=== PATIENT | male | born 1940 | race Caucasian/White ===

== ENCOUNTER 2021-07-29 18:42 | Inpatient (IN) | payer MEDICARE, OTHER ==
[~2021-07-29] VITALS: Ht 167.6 cm; Wt 73.2 kg
[2021-07-29] MEDS ORDERED: HYDROCODONE/ACETAMINOPHEN 5/325MG TABLET PO ONE (20:00)
[2021-07-29] MEDS ORDERED: MORPHINE SULFATE 4 MG/ML CPJ (NOT FOR IM USE) IV STA (21:33)
[2021-07-29] MEDS ORDERED: ONDANSETRON HCL 4MG/2ML INJ IV STA (21:33)
[2021-07-29] MEDS ORDERED: SODIUM CHLORIDE 0.9% 1,000 ML IV ONE (21:45)
[2021-07-29 22:11] LABS: HEMATOCRIT. 41.5 % (42.0-52.0); HEMOGLOBIN. 13.6 g/dL (14.0-18.0); MEAN CORPUSCULAR HEMOGLOBIN 30.6 pg (28.0-32.0); MEAN CORPUSCULAR VOLUME 93.3 fL (80.0-94.0); MEAN PLATELET VOLUME 8.1 fl (7.4-10.4); PLATELET 158 x1000/uL (130-400); RED BLOOD CELL COUNT 4.45 mill/uL (4.7-6.1); RED CELL DISTRIBUTION WIDTH 13.1 % (11.6-14.6)
[2021-07-29 22:18] LABS: CHLORIDE 106 mEq/L (98-107)
[2021-07-29 22:21] LABS: PARTIAL THROMBOPLASTIN TIME 25.1 sec (23.4-31.0); PROTHROMBIN TIME 10.6 sec (9.6-11.0)
[2021-07-29 22:39] LABS: PLATELET ESTIMATE NORMAL
[2021-07-30] MEDS ORDERED: MAGNESIUM/ALUMINUM HYDROXIDE/SIMETHICONE 30ML UDC PO PRN (01:45)
[2021-07-30] MEDS ORDERED: NALOXONE HCL 0.4MG/ML VIAL IV PRN (01:45)
[2021-07-30] MEDS ORDERED: CLONIDINE 0.1MG TABLET PO PRN (01:45)
[2021-07-30] MEDS ORDERED: DOCUSATE SODIUM 100MG CAPSULE PO PRN (01:45)
[2021-07-30] MEDS ORDERED: ONDANSETRON HCL 4MG/2ML INJ IV PRN (01:45)
[2021-07-30] MEDS ORDERED: HYDROCODONE/APAP 7.5/325MG 1 TAB TABLET PO PRN (01:45)
[2021-07-30] MEDS ORDERED: GUAIFENESIN 200MG/10ML SUGAR FREE UDC PO PRN (01:45)
[2021-07-30] MEDS ORDERED: ACETAMINOPHEN 325MG TABLET PO PRN (01:45)
[2021-07-30] MEDS: AMLODIPINE 10MG TABLET PO SCH (02:00)
[2021-07-30] MEDS: ENOXAPARIN 40MG/0.4ML SYR SUBCUT SCH (09:46)
[2021-07-30] MEDS: HYDROMORPHONE HCL/PF 2MG/ML CPJ IV PRN ×2 (13:52→18:54)
[2021-07-30] MEDS ORDERED: FAMO40TA7 PO (15:40)
[2021-07-30] MEDS ORDERED: ASPI-1497 PO (15:40)
[2021-07-30] MEDS ORDERED: BUPR-74 PO (15:40)
[2021-07-30] MEDS ORDERED: OMEP20TA2 PO (15:40)
[2021-07-30] MEDS ORDERED: ROSU20TA2 PO (15:40)
[2021-07-30] MEDS ORDERED: VENL37.586 PO (15:40)
[2021-07-30] MEDS ORDERED: SITA1TAB6 PO (15:40)
[2021-07-30] MEDS ORDERED: AMLO10TA80 PO (15:40)
[2021-07-30] MEDS ORDERED: EMPA25TA PO (15:40)
[2021-07-30] MEDS ORDERED: LOSA50TA41 PO (15:40)
[2021-07-30] MEDS: BLOOD SUGAR DIAGNOSTIC STRIP TEST SCH ×2 (17:12→20:46)
[2021-07-30] MEDS ORDERED: DEXTROSE 50% WATER 50ML SYRINGE IV PRN (17:15)
[2021-07-30] MEDS: INSULIN LISPRO 100 UNITS/ML SUBCUT SCH ×2 (17:52→20:52)
[2021-07-30 19:53] VITALS: BP 125/60
[2021-07-30 20:00] VITALS: BP 141/47
[2021-07-31] VITALS: BP 133/81
[2021-07-31 04:00] VITALS: BP 128/55
[2021-07-31] MEDS: HYDROMORPHONE HCL/PF 2MG/ML CPJ IV PRN ×3 (04:59→18:22)
[2021-07-31 06:36] LABS: BASOPHILS % 0.2 % (0.0-2.0); EOSINOPHILS % 3.6 % (0.0-5.0); HEMATOCRIT. 32.8 % (42.0-52.0); HEMOGLOBIN. 11.2 g/dL (14.0-18.0); LYMPHOCYTES % 8.7 % (20.0-50.0); MEAN CORPUSCULAR HEMOGLOBIN 31.9 pg (28.0-32.0); MEAN CORPUSCULAR VOLUME 93.3 fL (80.0-94.0); MEAN PLATELET VOLUME 8.6 fl (7.4-10.4); MONOCYTES % 11.2 % (2.0-8.0); NEUTROPHILS % 76.3 % (40.0-76.0); PLATELET 113 x1000/uL (130-400); RED BLOOD CELL COUNT 3.52 mill/uL (4.7-6.1); RED CELL DISTRIBUTION WIDTH 13.7 % (11.6-14.6)
[2021-07-31] MEDS: BLOOD SUGAR DIAGNOSTIC STRIP TEST SCH ×4 (06:51→21:55)
[2021-07-31 06:53] LABS: CHLORIDE 106 mEq/L (98-107)
[2021-07-31] MEDS: INSULIN LISPRO 100 UNITS/ML SUBCUT SCH ×4 (06:57→21:55)
[2021-07-31 07:04] LABS: LDL CHOLESTEROL 35 mg/dL (5-100)
[2021-07-31 07:05] LABS: HDL CHOLESTEROL 56 mg/dL (40-59)
[2021-07-31 08:00] VITALS: BP 113/40
[2021-07-31] MEDS: ENOXAPARIN 40MG/0.4ML SYR SUBCUT SCH (09:28)
[2021-07-31] MEDS: AMLODIPINE 10MG TABLET PO SCH (09:28)
[2021-07-31 12:00] VITALS: BP 123/39
[2021-07-31 16:00] VITALS: BP 124/49
[2021-07-31 20:00] VITALS: BP 109/41
[2021-08-01] VITALS: BP 134/50
[2021-08-01 04:00] VITALS: BP 113/51
[2021-08-01] MEDS: BLOOD SUGAR DIAGNOSTIC STRIP TEST SCH ×4 (07:14→20:52)
[2021-08-01] MEDS: INSULIN LISPRO 100 UNITS/ML SUBCUT SCH ×4 (07:15→20:52)
[2021-08-01 08:00] VITALS: BP 128/52
[2021-08-01] MEDS: ENOXAPARIN 40MG/0.4ML SYR SUBCUT SCH (09:00)
[2021-08-01] MEDS: AMLODIPINE 10MG TABLET PO SCH (09:08)
[2021-08-01] MEDS: HYDROMORPHONE HCL/PF 2MG/ML CPJ IV PRN (09:14)
[2021-08-01] MEDS ORDERED: TRANEXAMIC ACID 1,000 MG in SODIUM CHLORIDE 0.9% 100 ML IV ONE ×2 (11:00→11:15)
[2021-08-01] MEDS ORDERED: EPINEPHRINE 1:1000 1 MG/ML AMP ONE (11:11)
[2021-08-01] MEDS ORDERED: MORPHINE SULFATE/PF 1MG/ML 10ML AMP ONE (11:11)
[2021-08-01] MEDS ORDERED: LIDOCAINE HCL/EPINEPHRINE 1%-EPI 1:100,000 30 ML VIAL INFIL ONE (11:11)
[2021-08-01] MEDS ORDERED: ROPIVACAINE HCL 10MG/ML 20 ML VIAL EPI ONE (11:12)
[2021-08-01] MEDS ORDERED: KETOROLAC 30MG/ML VIAL ONE (11:12)
[2021-08-01] MEDS ORDERED: VANCOMYCIN HCL 1 GM/VIAL ONE ×2 (11:16→14:45)
[2021-08-01] MEDS ORDERED: POLYMYXIN B SULFATE 500000 UNITS/VIAL ONE (11:16)
[2021-08-01] MEDS ORDERED: FENTANYL CITRATE/PF 50MCG/ML 2ML VIAL ONE ×2 (11:29→15:22)
[2021-08-01] MEDS ORDERED: PROPOFOL 200MG/20ML VIAL IV ONE (11:29)
[2021-08-01] MEDS ORDERED: ROCURONIUM BROMIDE 10MG/ML VIAL 5ML IV ONE (11:29)
[2021-08-01] MEDS ORDERED: CEFAZOLIN SODIUM 1000MG/VIAL ONE (11:29)
[2021-08-01] MEDS ORDERED: MIDAZOLAM HCL 2 MG/2 ML VIAL ONE (11:30)
[2021-08-01] MEDS ORDERED: DEXAMETHASONE 4MG/ML 1ML VIAL ONE (11:32)
[2021-08-01] MEDS ORDERED: ONDANSETRON HCL 4MG/2ML INJ ONE (11:32)
[2021-08-01] MEDS ORDERED: METOCLOPRAMIDE HCL 10MG/2ML VIAL ONE (11:32)
[2021-08-01] MEDS ORDERED: HYDROMORPHONE HCL/PF 2MG/ML CPJ IV PRN (14:30)
[2021-08-01] MEDS ORDERED: FENTANYL CITRATE/PF 50MCG/ML 2ML VIAL IV PRN (14:30)
[2021-08-01] MEDS ORDERED: SKIN ADHESIVE 0.7 GM EA TOP ONE (14:53)
[2021-08-01] MEDS ORDERED: HYDROCODONE/ACETAMINOPHEN 5/325MG TABLET PO PRN (15:30)
[2021-08-01] MEDS ORDERED: CEFAZOLIN 1000MG PREMIX 50 ML IV SCH (15:30)
[2021-08-01] MEDS ORDERED: ONDANSETRON HCL 4MG/2ML INJ IV PRN (15:30)
[2021-08-01] MEDS ORDERED: KETOROLAC 30MG/ML VIAL IV PRN (15:30)
[2021-08-01] MEDS ORDERED: HYDROCODONE/ACETAMINOPHEN 10/325MG TABLET PO PRN (15:30)
[2021-08-01 20:00] VITALS: BP 143/58
[2021-08-01] MEDS: CEFAZOLIN 1000MG PREMIX 50 ML IV SCH (20:51)
[2021-08-02] VITALS: BP 106/45
[2021-08-02 04:00] VITALS: BP 109/36
[2021-08-02] MEDS: CEFAZOLIN 1000MG PREMIX 50 ML IV SCH ×3 (04:01→20:03)
[2021-08-02] MEDS: BLOOD SUGAR DIAGNOSTIC STRIP TEST SCH ×4 (06:05→20:04)
[2021-08-02] MEDS: INSULIN LISPRO 100 UNITS/ML SUBCUT SCH ×4 (06:10→20:03)
[2021-08-02 08:00] VITALS: BP 113/42
[2021-08-02 08:26] LABS: HEMOGLOBIN. 8.4 g/dL (14.0-18.0); MEAN CORPUSCULAR HEMOGLOBIN 31.3 pg (28.0-32.0); MEAN CORPUSCULAR VOLUME 93.7 fL (80.0-94.0); MEAN PLATELET VOLUME 8.9 fl (7.4-10.4); PLATELET 126 x1000/uL (130-400); RED BLOOD CELL COUNT 2.67 mill/uL (4.7-6.1); RED CELL DISTRIBUTION WIDTH 12.8 % (11.6-14.6)
[2021-08-02] MEDS: AMLODIPINE 10MG TABLET PO SCH (08:41)
[2021-08-02] MEDS: ENOXAPARIN 40MG/0.4ML SYR SUBCUT SCH (08:41)
[2021-08-02] MEDS: HYDROMORPHONE HCL/PF 2MG/ML CPJ IV PRN ×3 (08:42→17:10)
[2021-08-02 12:00] VITALS: BP 110/90
[2021-08-02 16:00] VITALS: BP 118/40
[2021-08-02 16:53] LABS: PLATELET ESTIMATE SLIGHTLY DECREASED
[2021-08-02 20:00] VITALS: BP 131/43
[2021-08-03] VITALS (12 sets, daily range): BP systolic 101–133; BP diastolic 33–61
[2021-08-03] MEDS: BLOOD SUGAR DIAGNOSTIC STRIP TEST SCH ×4 (05:58→21:35)
[2021-08-03] MEDS: CEFAZOLIN 1000MG PREMIX 50 ML IV SCH ×3 (06:16→22:28)
[2021-08-03] MEDS: INSULIN LISPRO 100 UNITS/ML SUBCUT SCH ×4 (06:17→21:37)
[2021-08-03] MEDS: AMLODIPINE 10MG TABLET PO SCH (09:00)
[2021-08-03] MEDS: ENOXAPARIN 40MG/0.4ML SYR SUBCUT SCH (09:09)
[2021-08-03] MEDS: HYDROMORPHONE HCL/PF 2MG/ML CPJ IV PRN ×3 (09:10→21:36)
[2021-08-03] MEDS ORDERED: LACTULOSE 20G/30ML UDC PO PRN (10:30)
[2021-08-03 11:56] LABS: MEAN CORPUSCULAR HEMOGLOBIN 31.6 pg (28.0-32.0); MEAN CORPUSCULAR VOLUME 91.8 fL (80.0-94.0); MEAN PLATELET VOLUME 8.8 fl (7.4-10.4); PLATELET 134 x1000/uL (130-400); RED BLOOD CELL COUNT 2.29 mill/uL (4.7-6.1); RED CELL DISTRIBUTION WIDTH 12.7 % (11.6-14.6)
[2021-08-03 12:07] LABS: HEMOGLOBIN. 7.2 g/dL (14.0-18.0)
[2021-08-03] MEDS: DOCUSATE SODIUM 100MG CAPSULE PO SCH ×2 (13:48→17:59)
[2021-08-03 14:32] LABS: TOTAL IRON BINDING CAPACITY 280 ug/dL (250-450)
[2021-08-03 16:32] LABS: PLATELET ESTIMATE NORMAL
[2021-08-03 23:18] LABS: HEMATOCRIT 23.9 % (42.0-52.0); HEMOGLOBIN 8.2 g/dL (14.0-18.0)
[2021-08-04] MEDS ORDERED: IRON PO (04:15)
[2021-08-04] MEDS ORDERED: FEXOFENADINE PO (04:18)
[2021-08-04] MEDS ORDERED: VITAMINE D3 PO (04:19)
[2021-08-04] MEDS ORDERED: ZINC PO (04:20)
[2021-08-04] MEDS ORDERED: ASCO125T PO (04:21)
[2021-08-04] MEDS ORDERED: THIAMINE HCL 100MG TABLET PO SCH (09:00)
[2021-08-04] MEDS ORDERED: FOLIC ACID 1MG TABLET PO SCH (09:00)
== END 2021-08-03 23:55 | DRG 466 ==
LOC: ER 18:42 → MICUSO 22:34 → 5WST 07-30 13:31
PROVIDERS: ADMIT Hospitalist; ATTEND Hospitalist
PROC: 0SR90JZ Replacement of Right Hip Joint with Synthetic Substitute, Open Approach (ICD-10-PCS; principal; 2021-08-01)
PROC: 0SP90JZ Removal of Synthetic Substitute from Right Hip Joint, Open Approach (ICD-10-PCS; 2021-08-01)
PROC: 0QS604Z Reposition Right Upper Femur with Internal Fixation Device, Open Approach (ICD-10-PCS; 2021-08-01)
PROC: 30233N1 Transfusion of Nonautologous Red Blood Cells into Peripheral Vein, Percutaneous Approach (ICD-10-PCS; 2021-08-03)
DX: M97.01XA Periprosthetic fracture around internal prosthetic right hip joint, initial encounter (principal); S72.101A Unspecified trochanteric fracture of right femur, initial encounter for closed fracture; D64.9 Anemia, unspecified; E11.9 Type 2 diabetes mellitus without complications; I10 Essential (primary) hypertension; W01.0XXA Fall on same level from slipping, tripping and stumbling without subsequent striking against object, initial encounter; Z96.643 Presence of artificial hip joint, bilateral; D72.829 Elevated white blood cell count, unspecified; I25.10 Atherosclerotic heart disease of native coronary artery without angina pectoris; J44.9 Chronic obstructive pulmonary disease, unspecified; K22.70 Barrett's esophagus without dysplasia; Y93.01 Activity, walking, marching and hiking; D69.6 Thrombocytopenia, unspecified; Z20.822 Contact with and (suspected) exposure to COVID-19; R53.81 Other malaise; M16.11 Unilateral primary osteoarthritis, right hip; Z79.82 Long term (current) use of aspirin; Z79.84 Long term (current) use of oral hypoglycemic drugs; Z85.01 Personal history of malignant neoplasm of esophagus; Z87.891 Personal history of nicotine dependence; Z98.61 Coronary angioplasty status; Z79.899 Other long term (current) drug therapy; Z82.49 Family history of ischemic heart disease and other diseases of the circulatory system; Z88.1 Allergy status to other antibiotic agents; Z88.2 Allergy status to sulfonamides; Z88.8 Allergy status to other drugs, medicaments and biological substances; Y92.89 Other specified places as the place of occurrence of the external cause; Y99.8 Other external cause status; T84.030A Mechanical loosening of internal right hip prosthetic joint, initial encounter
CPT/HCPCS: 36415; 71045; 71101; 72170; 72192; 73030; 73080; 73110; 73501; 73502; 73552; 76000; 80053; 80061; 82962; 83036; 83540; 83550; 85014; 85018; 85025; 86850; 86900; 86920; 87426; 88300; 93005; 93306; 93970; 97110; 97162; 99285; C1776; J0690; J1100; J1170; J1650; J1815; J1885; J2250; J2270; J2274; J2405; J2704; J2765; J2795; J3010; J3370; J3490; J7030; J7050; P9016

== ENCOUNTER 2021-08-03 23:56 | Inpatient (IN) | payer MEDICARE ==
[~2021-08-03] VITALS: Ht 188 cm; Wt 68.0 kg
[~2021-08-03 23:56] MED LIST: AMLO10TA80 PO; ASPI-1497 PO; BUPR-74 PO; EMPA25TA PO; FAMO40TA7 PO; LOSA50TA41 PO; OMEP20TA2 PO; ROSU20TA2 PO; SITA1TAB6 PO; VENL37.586 PO
[2021-08-04] VITALS: BP 120/93
[2021-08-04] MEDS ORDERED: GUAIFENESIN 200MG/10ML SUGAR FREE UDC PO PRN (01:15)
[2021-08-04] MEDS ORDERED: DEXTROSE 50% WATER 50ML SYRINGE IV PRN (01:15)
[2021-08-04] MEDS ORDERED: CLONIDINE 0.1MG TABLET PO PRN ×2 (01:15)
[2021-08-04] MEDS ORDERED: HYDROCODONE/ACETAMINOPHEN 10/325MG TABLET PO PRN (01:15)
[2021-08-04] MEDS ORDERED: NALOXONE HCL 0.4 MG/ML 1ML VIAL IV PRN (01:15)
[2021-08-04] MEDS ORDERED: MAGNESIUM/ALUMINUM HYDROXIDE/SIMETHICONE 30ML UDC PO PRN (01:15)
[2021-08-04] MEDS ORDERED: ONDANSETRON HCL 4MG TABLET PO PRN (01:15)
[2021-08-04] MEDS: HYDROCODONE/ACETAMINOPHEN 5/325MG TABLET PO PRN ×3 (02:42→19:00)
[2021-08-04] MEDS ORDERED: IRON PO (04:15)
[2021-08-04] MEDS ORDERED: FEXOFENADINE PO (04:18)
[2021-08-04] MEDS ORDERED: VITAMINE D3 PO (04:19)
[2021-08-04] MEDS ORDERED: ZINC PO (04:20)
[2021-08-04] MEDS ORDERED: ASCO125T PO (04:21)
[2021-08-04 06:31] LABS: CHLORIDE 106 mEq/L (98-107)
[2021-08-04 06:35] LABS: HEMATOCRIT. 22.8 % (42.0-52.0); MEAN CORPUSCULAR HEMOGLOBIN 31.9 pg (28.0-32.0); MEAN CORPUSCULAR VOLUME 90.8 fL (80.0-94.0); MEAN PLATELET VOLUME 8.7 fl (7.4-10.4); PLATELET 134 x1000/uL (130-400); RED BLOOD CELL COUNT 2.51 mill/uL (4.7-6.1); RED CELL DISTRIBUTION WIDTH 13.4 % (11.6-14.6)
[2021-08-04] MEDS: BLOOD SUGAR DIAGNOSTIC STRIP TEST SCH ×4 (06:36→21:25)
[2021-08-04 07:54] VITALS: BP 127/53
[2021-08-04] MEDS: THIAMINE HCL 100MG TABLET PO SCH (08:13)
[2021-08-04] MEDS: DOCUSATE SODIUM 100MG CAPSULE PO SCH ×2 (08:13→18:57)
[2021-08-04] MEDS: FOLIC ACID 1MG TABLET PO SCH (08:13)
[2021-08-04] MEDS: AMLODIPINE 10MG TABLET PO SCH (09:09)
[2021-08-04 12:00] VITALS: BP 112/52
[2021-08-04] MEDS: INSULIN LISPRO 100 UNITS/ML SUBCUT SCH ×4 (12:36→21:55)
[2021-08-04 15:35] LABS: PLATELET ESTIMATE NORMAL
[2021-08-04 16:00] VITALS: BP 119/54
[2021-08-04] MEDS: LACTULOSE 20G/30ML UDC PO PRN (18:57)
[2021-08-04 20:00] VITALS: BP 122/50
[2021-08-05 06:42] LABS: BASOPHILS % 0.5 % (0.0-2.0); EOSINOPHILS % 4.9 % (0.0-5.0); HEMATOCRIT. 22.1 % (42.0-52.0); HEMOGLOBIN. 7.8 g/dL (14.0-18.0); LYMPHOCYTES % 10.2 % (20.0-50.0); MEAN CORPUSCULAR VOLUME 91.3 fL (80.0-94.0); MEAN PLATELET VOLUME 8.2 fl (7.4-10.4); MONOCYTES % 13.4 % (2.0-8.0); PLATELET 178 x1000/uL (130-400); RED BLOOD CELL COUNT 2.42 mill/uL (4.7-6.1); RED CELL DISTRIBUTION WIDTH 13.3 % (11.6-14.6)
[2021-08-05] MEDS: LACTULOSE 20G/30ML UDC PO PRN (06:47)
[2021-08-05] MEDS: HYDROCODONE/ACETAMINOPHEN 5/325MG TABLET PO PRN (06:47)
[2021-08-05] MEDS: BLOOD SUGAR DIAGNOSTIC STRIP TEST SCH ×4 (06:48→20:54)
[2021-08-05 07:04] LABS: CHLORIDE 105 mEq/L (98-107)
[2021-08-05 07:17] LABS: FOLIC ACID (FOLATE) SERUM 11.2 ng/mL (>5.38)
[2021-08-05 07:32] LABS: TOTAL IRON BINDING CAPACITY 283 ug/dL (250-450)
[2021-08-05 08:00] VITALS: BP 140/68
[2021-08-05] MEDS: DOCUSATE SODIUM 100MG CAPSULE PO SCH ×2 (08:09→17:20)
[2021-08-05] MEDS: THIAMINE HCL 100MG TABLET PO SCH (08:09)
[2021-08-05] MEDS: FOLIC ACID 1MG TABLET PO SCH (08:09)
[2021-08-05] MEDS: AMLODIPINE 10MG TABLET PO SCH (08:10)
[2021-08-05] MEDS: INSULIN LISPRO 100 UNITS/ML SUBCUT SCH ×4 (08:16→21:08)
[2021-08-05] MEDS: FERROUS SULFATE 325MG TABLET PO SCH ×2 (14:43→17:21)
[2021-08-05] MEDS ORDERED: CYANOCOBALAMIN 1000MCG/ML VIAL IM NR (17:45)
[2021-08-05 20:00] VITALS: BP 119/50
[2021-08-06] MEDS: HYDROCODONE/ACETAMINOPHEN 5/325MG TABLET PO PRN (00:28)
[2021-08-06 07:12] LABS: HEMATOCRIT. 24.1 % (42.0-52.0); HEMOGLOBIN. 8.2 g/dL (14.0-18.0); MEAN CORPUSCULAR HEMOGLOBIN 31.5 pg (28.0-32.0); MEAN CORPUSCULAR VOLUME 92.1 fL (80.0-94.0); MEAN PLATELET VOLUME 7.8 fl (7.4-10.4); PLATELET 259 x1000/uL (130-400); RED BLOOD CELL COUNT 2.62 mill/uL (4.7-6.1); RED CELL DISTRIBUTION WIDTH 13.2 % (11.6-14.6)
[2021-08-06] MEDS: ACETAMINOPHEN 325MG TABLET PO PRN ×3 (07:12→22:32)
[2021-08-06] MEDS: BLOOD SUGAR DIAGNOSTIC STRIP TEST SCH ×4 (07:12→21:00)
[2021-08-06] MEDS: INSULIN LISPRO 100 UNITS/ML SUBCUT SCH ×4 (07:24→22:54)
[2021-08-06 08:00] VITALS: BP 119/50
[2021-08-06] MEDS: FOLIC ACID 1MG TABLET PO SCH (08:00)
[2021-08-06] MEDS: THIAMINE HCL 100MG TABLET PO SCH (08:00)
[2021-08-06] MEDS: DOCUSATE SODIUM 100MG CAPSULE PO SCH ×2 (08:00→16:43)
[2021-08-06] MEDS: FERROUS SULFATE 325MG TABLET PO SCH ×2 (08:00→12:17)
[2021-08-06] MEDS: AMLODIPINE 10MG TABLET PO SCH (08:02)
[2021-08-06] MEDS ORDERED: INSULIN LISPRO 100 UNITS/ML SUBCUT ONE (12:15)
[2021-08-06] MEDS ORDERED: INSULIN LISPRO 100 UNITS/ML SUBCUT NR (13:00)
[2021-08-06 13:08] LABS: INR 0.9; PROTHROMBIN TIME 9.7 sec (9.6-11.0)
[2021-08-06] MEDS ORDERED: INSULIN GLARGINE UD 100 UNITS/ML SYR SUBCUT NR (14:00)
[2021-08-06 20:00] VITALS: BP 118/56
[2021-08-06 21:52] LABS: PLATELET ESTIMATE NORMAL
[2021-08-06] MEDS: LACTULOSE 20G/30ML UDC PO PRN (22:32)
[2021-08-06] MEDS: IRON SUCROSE COMPLEX 100 MG in SODIUM CHLORIDE 0.9% 100 ML IV SCH (23:20)
[2021-08-07] MEDS: ACETAMINOPHEN 325MG TABLET PO PRN ×5 (02:42→22:12)
[2021-08-07 06:32] LABS: CHLORIDE 105 mEq/L (98-107)
[2021-08-07] MEDS: BLOOD SUGAR DIAGNOSTIC STRIP TEST SCH ×4 (06:56→21:00)
[2021-08-07] MEDS: INSULIN LISPRO 100 UNITS/ML SUBCUT SCH ×4 (07:12→22:56)
[2021-08-07 08:00] VITALS: BP 110/55
[2021-08-07] MEDS: DOCUSATE SODIUM 100MG CAPSULE PO SCH ×3 (09:00→17:00)
[2021-08-07] MEDS: AMLODIPINE 10MG TABLET PO SCH (09:42)
[2021-08-07] MEDS: ASCORBIC ACID 500 MG TABLET PO SCH (09:42)
[2021-08-07] MEDS: FOLIC ACID 1MG TABLET PO SCH (09:42)
[2021-08-07] MEDS: THIAMINE HCL 100MG TABLET PO SCH (09:42)
[2021-08-07] MEDS ORDERED: INSULIN GLARGINE UD 100 UNITS/ML SYR SUBCUT SCH (10:00)
[2021-08-07 17:56] LABS: HEMATOCRIT. 23.5 % (42.0-52.0); HEMOGLOBIN. 8.2 g/dL (14.0-18.0); MEAN CORPUSCULAR HEMOGLOBIN 32.3 pg (28.0-32.0); MEAN CORPUSCULAR VOLUME 92.7 fL (80.0-94.0); MEAN PLATELET VOLUME 7.6 fl (7.4-10.4); PLATELET 325 x1000/uL (130-400); RED BLOOD CELL COUNT 2.53 mill/uL (4.7-6.1); RED CELL DISTRIBUTION WIDTH 13.7 % (11.6-14.6)
[2021-08-07 18:31] LABS: PLATELET ESTIMATE NORMAL
[2021-08-07 20:00] VITALS: BP 93/42
[2021-08-07] MEDS: IRON SUCROSE COMPLEX 100 MG in SODIUM CHLORIDE 0.9% 100 ML IV SCH (22:11)
[2021-08-08] MEDS: ACETAMINOPHEN 325MG TABLET PO PRN ×4 (02:35→23:44)
[2021-08-08] MEDS: BLOOD SUGAR DIAGNOSTIC STRIP TEST SCH ×4 (06:27→21:00)
[2021-08-08] MEDS: INSULIN LISPRO 100 UNITS/ML SUBCUT SCH ×6 (06:52→22:02)
[2021-08-08 07:41] LABS: HEMATOCRIT. 23.6 % (42.0-52.0); HEMOGLOBIN. 8.2 g/dL (14.0-18.0); MEAN CORPUSCULAR HEMOGLOBIN 32.3 pg (28.0-32.0); MEAN CORPUSCULAR VOLUME 93.4 fL (80.0-94.0); MEAN PLATELET VOLUME 7.2 fl (7.4-10.4); PLATELET 329 x1000/uL (130-400); RED BLOOD CELL COUNT 2.52 mill/uL (4.7-6.1); RED CELL DISTRIBUTION WIDTH 13.9 % (11.6-14.6)
[2021-08-08 07:48] LABS: CHLORIDE 105 mEq/L (98-107)
[2021-08-08 08:00] VITALS: BP 106/50
[2021-08-08] MEDS: DOCUSATE SODIUM 100MG CAPSULE PO SCH ×2 (08:52→18:34)
[2021-08-08] MEDS: FOLIC ACID 1MG TABLET PO SCH (08:52)
[2021-08-08] MEDS: AMLODIPINE 10MG TABLET PO SCH (08:52)
[2021-08-08] MEDS: ASCORBIC ACID 500 MG TABLET PO SCH (08:52)
[2021-08-08] MEDS: THIAMINE HCL 100MG TABLET PO SCH (09:27)
[2021-08-08] MEDS: INSULIN GLARGINE UD 100 UNITS/ML SYR SUBCUT SCH (10:28)
[2021-08-08 13:12] LABS: PLATELET ESTIMATE NORMAL
[2021-08-08 20:00] VITALS: BP 103/44
[2021-08-08] MEDS: IRON SUCROSE COMPLEX 100 MG in SODIUM CHLORIDE 0.9% 100 ML IV SCH (21:49)
[2021-08-09] MEDS: HYDROCODONE/ACETAMINOPHEN 5/325MG TABLET PO PRN ×2 (01:44→23:27)
[2021-08-09] MEDS: BLOOD SUGAR DIAGNOSTIC STRIP TEST SCH ×4 (06:46→21:21)
[2021-08-09 07:37] LABS: HEMATOCRIT. 23.6 % (42.0-52.0); HEMOGLOBIN. 8.1 g/dL (14.0-18.0); MEAN CORPUSCULAR HEMOGLOBIN 32.3 pg (28.0-32.0); MEAN CORPUSCULAR VOLUME 94.1 fL (80.0-94.0); MEAN PLATELET VOLUME 7.3 fl (7.4-10.4); PLATELET 380 x1000/uL (130-400); RED BLOOD CELL COUNT 2.51 mill/uL (4.7-6.1); RED CELL DISTRIBUTION WIDTH 14.1 % (11.6-14.6)
[2021-08-09 07:45] LABS: CHLORIDE 106 mEq/L (98-107)
[2021-08-09 08:00] VITALS: BP 122/50
[2021-08-09] MEDS: FOLIC ACID 1MG TABLET PO SCH (08:40)
[2021-08-09] MEDS: THIAMINE HCL 100MG TABLET PO SCH (08:41)
[2021-08-09] MEDS: DOCUSATE SODIUM 100MG CAPSULE PO SCH ×2 (08:41→17:58)
[2021-08-09] MEDS: ASCORBIC ACID 500 MG TABLET PO SCH (08:41)
[2021-08-09] MEDS: AMLODIPINE 10MG TABLET PO SCH (08:42)
[2021-08-09] MEDS: INSULIN LISPRO 100 UNITS/ML SUBCUT SCH ×7 (08:45→21:00)
[2021-08-09] MEDS: INSULIN GLARGINE UD 100 UNITS/ML SYR SUBCUT SCH (10:42)
[2021-08-09] MEDS ORDERED: NALOXONE HCL 0.4MG/ML VIAL IV PRN (17:15)
[2021-08-09] MEDS: ACETAMINOPHEN 325MG TABLET PO PRN (18:02)
[2021-08-09 20:00] VITALS: BP 101/46
[2021-08-09] MEDS: IRON SUCROSE COMPLEX 100 MG in SODIUM CHLORIDE 0.9% 100 ML IV SCH (21:22)
[2021-08-10] MEDS: BLOOD SUGAR DIAGNOSTIC STRIP TEST SCH ×4 (06:43→20:43)
[2021-08-10 06:53] LABS: CHLORIDE 107 mEq/L (98-107)
[2021-08-10 07:02] LABS: BASOPHILS % 0.8 % (0.0-2.0); EOSINOPHILS % 5.1 % (0.0-5.0); HEMATOCRIT. 26.6 % (42.0-52.0); HEMOGLOBIN. 9.1 g/dL (14.0-18.0); LYMPHOCYTES % 18.6 % (20.0-50.0); MEAN CORPUSCULAR HEMOGLOBIN 32.5 pg (28.0-32.0); MEAN CORPUSCULAR VOLUME 95.6 fL (80.0-94.0); MEAN PLATELET VOLUME 7.7 fl (7.4-10.4); MONOCYTES % 11.2 % (2.0-8.0); NEUTROPHILS % 64.3 % (40.0-76.0); PLATELET 368 x1000/uL (130-400); RED BLOOD CELL COUNT 2.78 mill/uL (4.7-6.1); RED CELL DISTRIBUTION WIDTH 14.5 % (11.6-14.6)
[2021-08-10 08:00] VITALS: BP 121/49
[2021-08-10] MEDS: THIAMINE HCL 100MG TABLET PO SCH (08:12)
[2021-08-10] MEDS: FOLIC ACID 1MG TABLET PO SCH (08:12)
[2021-08-10] MEDS: ASCORBIC ACID 500 MG TABLET PO SCH (08:12)
[2021-08-10] MEDS: DOCUSATE SODIUM 100MG CAPSULE PO SCH ×2 (08:12→17:15)
[2021-08-10] MEDS: ACETAMINOPHEN 325MG TABLET PO PRN ×3 (08:13→22:19)
[2021-08-10] MEDS: AMLODIPINE 10MG TABLET PO SCH (08:13)
[2021-08-10 08:17] LABS: PLATELET ESTIMATE NORMAL
[2021-08-10] MEDS: INSULIN LISPRO 100 UNITS/ML SUBCUT SCH ×7 (08:18→20:44)
[2021-08-10] MEDS: INSULIN GLARGINE UD 100 UNITS/ML SYR SUBCUT SCH (10:07)
[2021-08-10 20:00] VITALS: BP 120/45
[2021-08-10] MEDS: IRON SUCROSE COMPLEX 100 MG in SODIUM CHLORIDE 0.9% 100 ML IV SCH (20:43)
[2021-08-11] MEDS: ACETAMINOPHEN 325MG TABLET PO PRN ×3 (01:56→14:50)
[2021-08-11] MEDS: BLOOD SUGAR DIAGNOSTIC STRIP TEST SCH ×4 (05:27→20:19)
[2021-08-11] MEDS: INSULIN LISPRO 100 UNITS/ML SUBCUT SCH ×7 (05:39→21:19)
[2021-08-11 06:34] LABS: HEMATOCRIT. 26.2 % (42.0-52.0); HEMOGLOBIN. 8.9 g/dL (14.0-18.0); MEAN CORPUSCULAR HEMOGLOBIN 32.2 pg (28.0-32.0); MEAN CORPUSCULAR VOLUME 95.2 fL (80.0-94.0); MEAN PLATELET VOLUME 7.3 fl (7.4-10.4); PLATELET 406 x1000/uL (130-400); RED BLOOD CELL COUNT 2.76 mill/uL (4.7-6.1); RED CELL DISTRIBUTION WIDTH 14.9 % (11.6-14.6)
[2021-08-11 07:36] LABS: CHLORIDE 107 mEq/L (98-107)
[2021-08-11 08:00] VITALS: BP 147/87
[2021-08-11] MEDS: ASCORBIC ACID 500 MG TABLET PO SCH (10:07)
[2021-08-11] MEDS: THIAMINE HCL 100MG TABLET PO SCH (10:07)
[2021-08-11] MEDS: DOCUSATE SODIUM 100MG CAPSULE PO SCH ×2 (10:08→18:10)
[2021-08-11] MEDS: FERROUS SULFATE 325MG TABLET PO SCH ×2 (10:08→18:10)
[2021-08-11] MEDS: FOLIC ACID 1MG TABLET PO SCH (10:08)
[2021-08-11] MEDS: AMLODIPINE 10MG TABLET PO SCH (10:08)
[2021-08-11] MEDS: INSULIN GLARGINE UD 100 UNITS/ML SYR SUBCUT SCH (10:34)
[2021-08-11] MEDS ORDERED: HYDROCODONE/ACETAMINOPHEN 5/325MG TABLET PO PRN (20:00)
[2021-08-11 20:12] VITALS: BP 107/47
[2021-08-11] MEDS: OMEPRAZOLE 20MG CAPSULE EXTENDED RELEASE PO SCH (20:16)
[2021-08-11 20:32] LABS: PLATELET ESTIMATE INCREASED
[2021-08-11] MEDS: HYDROCODONE/ACETAMINOPHEN 5/325MG TABLET PO PRN (23:17)
[2021-08-12] MEDS: BLOOD SUGAR DIAGNOSTIC STRIP TEST SCH ×4 (06:25→21:21)
[2021-08-12] MEDS: ACETAMINOPHEN 325MG TABLET PO PRN ×3 (06:54→22:48)
[2021-08-12] MEDS: THIAMINE HCL 100MG TABLET PO SCH (09:21)
[2021-08-12] MEDS: DOCUSATE SODIUM 100MG CAPSULE PO SCH ×2 (09:21→17:16)
[2021-08-12] MEDS: FERROUS SULFATE 325MG TABLET PO SCH ×2 (09:21→17:16)
[2021-08-12] MEDS: ASCORBIC ACID 500 MG TABLET PO SCH (09:21)
[2021-08-12] MEDS: OMEPRAZOLE 20MG CAPSULE EXTENDED RELEASE PO SCH ×2 (09:22→22:24)
[2021-08-12] MEDS: FOLIC ACID 1MG TABLET PO SCH (09:22)
[2021-08-12] MEDS: AMLODIPINE 10MG TABLET PO SCH (09:24)
[2021-08-12] MEDS: INSULIN LISPRO 100 UNITS/ML SUBCUT SCH ×7 (09:29→22:27)
[2021-08-12] MEDS: INSULIN GLARGINE UD 100 UNITS/ML SYR SUBCUT SCH (09:57)
[2021-08-12 20:21] VITALS: BP 113/41
[2021-08-13 04:11] LABS: 25-HYDROXY VITAMIN D3 30 ng/mL (.)
[2021-08-13] MEDS: BLOOD SUGAR DIAGNOSTIC STRIP TEST SCH ×4 (05:51→21:48)
[2021-08-13] MEDS: ACETAMINOPHEN 325MG TABLET PO PRN ×2 (06:42→23:32)
[2021-08-13] MEDS: OMEPRAZOLE 20MG CAPSULE EXTENDED RELEASE PO SCH ×2 (06:43→21:46)
[2021-08-13] MEDS: INSULIN LISPRO 100 UNITS/ML SUBCUT SCH ×7 (06:47→21:48)
[2021-08-13 08:00] VITALS: BP 99/45
[2021-08-13] MEDS: ASCORBIC ACID 500 MG TABLET PO SCH (08:17)
[2021-08-13] MEDS: THIAMINE HCL 100MG TABLET PO SCH (08:17)
[2021-08-13] MEDS: DOCUSATE SODIUM 100MG CAPSULE PO SCH ×2 (08:17→17:12)
[2021-08-13] MEDS: FERROUS SULFATE 325MG TABLET PO SCH ×2 (08:17→17:12)
[2021-08-13] MEDS: FOLIC ACID 1MG TABLET PO SCH (08:17)
[2021-08-13] MEDS: AMLODIPINE 10MG TABLET PO SCH (08:18)
[2021-08-13] MEDS: INSULIN GLARGINE UD 100 UNITS/ML SYR SUBCUT SCH (09:44)
[2021-08-13] MEDS: ERGOCALCIFEROL 50000UNITS CAPSULE PO SCH (17:11)
[2021-08-13 20:00] VITALS: BP 106/54
[2021-08-14 06:25] LABS: BASOPHILS % 0.8 % (0.0-2.0); EOSINOPHILS % 4.5 % (0.0-5.0); HEMATOCRIT. 26.7 % (42.0-52.0); LYMPHOCYTES % 20.1 % (20.0-50.0); MEAN CORPUSCULAR VOLUME 95.3 fL (80.0-94.0); MEAN PLATELET VOLUME 7.3 fl (7.4-10.4); MONOCYTES % 10.4 % (2.0-8.0); NEUTROPHILS % 64.2 % (40.0-76.0); PLATELET 389 x1000/uL (130-400); RED CELL DISTRIBUTION WIDTH 16.2 % (11.6-14.6)
[2021-08-14] MEDS: BLOOD SUGAR DIAGNOSTIC STRIP TEST SCH ×4 (06:27→20:47)
[2021-08-14 06:39] LABS: CHLORIDE 108 mEq/L (98-107)
[2021-08-14 08:00] VITALS: BP 132/54
[2021-08-14] MEDS: INSULIN LISPRO 100 UNITS/ML SUBCUT SCH ×8 (09:51→20:48)
[2021-08-14] MEDS: INSULIN GLARGINE UD 100 UNITS/ML SYR SUBCUT SCH ×2 (09:52→12:18)
[2021-08-14] MEDS: OMEPRAZOLE 20MG CAPSULE EXTENDED RELEASE PO SCH ×2 (09:53→20:48)
[2021-08-14] MEDS: THIAMINE HCL 100MG TABLET PO SCH (09:53)
[2021-08-14] MEDS: ASCORBIC ACID 500 MG TABLET PO SCH (09:53)
[2021-08-14] MEDS: AMLODIPINE 10MG TABLET PO SCH (09:53)
[2021-08-14] MEDS: FOLIC ACID 1MG TABLET PO SCH (09:53)
[2021-08-14] MEDS: FERROUS SULFATE 325MG TABLET PO SCH ×2 (09:53→18:33)
[2021-08-14] MEDS: DOCUSATE SODIUM 100MG CAPSULE PO SCH ×2 (09:53→17:00)
[2021-08-14] MEDS: HYDROCODONE/ACETAMINOPHEN 5/325MG TABLET PO PRN (14:32)
[2021-08-14 20:00] VITALS: BP 103/43
[2021-08-14] MEDS ORDERED: DIPHENHYDRAMINE 50MG CAPSULE PO SCH (21:00)
[2021-08-14] MEDS: ACETAMINOPHEN 325MG TABLET PO PRN (21:50)
[2021-08-14] MEDS: DIPHENHYDRAMINE 50MG CAPSULE PO SCH (21:52)
[2021-08-15] MEDS: BLOOD SUGAR DIAGNOSTIC STRIP TEST SCH ×4 (06:24→21:22)
[2021-08-15] MEDS: ACETAMINOPHEN 325MG TABLET PO PRN ×3 (06:25→23:00)
[2021-08-15] MEDS: INSULIN LISPRO 100 UNITS/ML SUBCUT SCH ×7 (06:40→21:19)
[2021-08-15 07:54] VITALS: BP 109/59
[2021-08-15] MEDS: OMEPRAZOLE 20MG CAPSULE EXTENDED RELEASE PO SCH ×2 (08:48→21:17)
[2021-08-15] MEDS: DOCUSATE SODIUM 100MG CAPSULE PO SCH ×2 (08:48→17:47)
[2021-08-15] MEDS: THIAMINE HCL 100MG TABLET PO SCH (08:48)
[2021-08-15] MEDS: FOLIC ACID 1MG TABLET PO SCH (08:48)
[2021-08-15] MEDS: ASCORBIC ACID 500 MG TABLET PO SCH (08:48)
[2021-08-15] MEDS: HYDROCODONE/ACETAMINOPHEN 5/325MG TABLET PO PRN (08:49)
[2021-08-15] MEDS: FERROUS SULFATE 325MG TABLET PO SCH ×2 (08:53→17:47)
[2021-08-15] MEDS: AMLODIPINE 10MG TABLET PO SCH (08:53)
[2021-08-15] MEDS: INSULIN GLARGINE UD 100 UNITS/ML SYR SUBCUT SCH (11:12)
[2021-08-15 20:00] VITALS: BP 125/48
[2021-08-15] MEDS: DIPHENHYDRAMINE 50MG CAPSULE PO SCH (22:59)
[2021-08-16 00:10] VITALS: BP 125/48
[2021-08-16] MEDS: BLOOD SUGAR DIAGNOSTIC STRIP TEST SCH ×4 (06:35→21:57)
[2021-08-16 08:00] VITALS: BP 125/63
[2021-08-16] MEDS: INSULIN GLARGINE UD 100 UNITS/ML SYR SUBCUT SCH (09:28)
[2021-08-16] MEDS: INSULIN LISPRO 100 UNITS/ML SUBCUT SCH ×6 (09:29→22:03)
[2021-08-16] MEDS: DOCUSATE SODIUM 100MG CAPSULE PO SCH ×2 (09:30→17:27)
[2021-08-16] MEDS: AMLODIPINE 10MG TABLET PO SCH (09:30)
[2021-08-16] MEDS: FOLIC ACID 1MG TABLET PO SCH (09:30)
[2021-08-16] MEDS: ASCORBIC ACID 500 MG TABLET PO SCH (09:30)
[2021-08-16] MEDS: FERROUS SULFATE 325MG TABLET PO SCH ×2 (09:30→17:27)
[2021-08-16] MEDS: THIAMINE HCL 100MG TABLET PO SCH (09:31)
[2021-08-16] MEDS: OMEPRAZOLE 20MG CAPSULE EXTENDED RELEASE PO SCH ×2 (09:31→21:53)
[2021-08-16] MEDS: HYDROCODONE/ACETAMINOPHEN 5/325MG TABLET PO PRN (09:31)
[2021-08-16 20:00] VITALS: BP 125/40
[2021-08-16] MEDS: DIPHENHYDRAMINE 50MG CAPSULE PO SCH (23:33)
[2021-08-16] MEDS: ACETAMINOPHEN 325MG TABLET PO PRN (23:33)
[2021-08-17] MEDS: ACETAMINOPHEN 325MG TABLET PO PRN ×3 (04:16→20:01)
[2021-08-17] MEDS: BLOOD SUGAR DIAGNOSTIC STRIP TEST SCH ×4 (06:35→21:00)
[2021-08-17 08:00] VITALS: BP 124/61
[2021-08-17] MEDS: INSULIN LISPRO 100 UNITS/ML SUBCUT SCH ×7 (08:40→21:00)
[2021-08-17] MEDS: THIAMINE HCL 100MG TABLET PO SCH (08:43)
[2021-08-17] MEDS: FOLIC ACID 1MG TABLET PO SCH (08:44)
[2021-08-17] MEDS: AMLODIPINE 10MG TABLET PO SCH (08:44)
[2021-08-17] MEDS: ASCORBIC ACID 500 MG TABLET PO SCH (08:44)
[2021-08-17] MEDS: OMEPRAZOLE 20MG CAPSULE EXTENDED RELEASE PO SCH ×2 (08:44→20:00)
[2021-08-17] MEDS: FERROUS SULFATE 325MG TABLET PO SCH ×2 (08:44→17:52)
[2021-08-17] MEDS: DOCUSATE SODIUM 100MG CAPSULE PO SCH ×2 (08:44→17:52)
[2021-08-17] MEDS: INSULIN GLARGINE UD 100 UNITS/ML SYR SUBCUT SCH (11:00)
[2021-08-17] MEDS ORDERED: HYDROCODONE/ACETAMINOPHEN 5/325MG TABLET PO PRN ×2 (11:45)
[2021-08-17 20:00] VITALS: BP 117/75
[2021-08-17] MEDS: DIPHENHYDRAMINE 50MG CAPSULE PO SCH (20:00)
[2021-08-18] MEDS: ACETAMINOPHEN 325MG TABLET PO PRN ×3 (00:23→23:19)
[2021-08-18 06:12] LABS: HEMATOCRIT. 27.6 % (42.0-52.0); HEMOGLOBIN. 9.4 g/dL (14.0-18.0); MEAN CORPUSCULAR HEMOGLOBIN 32.3 pg (28.0-32.0); MEAN CORPUSCULAR VOLUME 94.6 fL (80.0-94.0); MEAN PLATELET VOLUME 7.5 fl (7.4-10.4); PLATELET 243 x1000/uL (130-400); RED BLOOD CELL COUNT 2.92 mill/uL (4.7-6.1); RED CELL DISTRIBUTION WIDTH 15.7 % (11.6-14.6)
[2021-08-18] MEDS: BLOOD SUGAR DIAGNOSTIC STRIP TEST SCH ×4 (06:16→21:00)
[2021-08-18 06:19] LABS: CHLORIDE 109 mEq/L (98-107)
[2021-08-18] MEDS: INSULIN LISPRO 100 UNITS/ML SUBCUT SCH ×7 (06:40→21:43)
[2021-08-18 08:00] VITALS: BP 133/58
[2021-08-18] MEDS: ASCORBIC ACID 500 MG TABLET PO SCH (09:07)
[2021-08-18] MEDS: FERROUS SULFATE 325MG TABLET PO SCH ×2 (09:07→17:01)
[2021-08-18] MEDS: THIAMINE HCL 100MG TABLET PO SCH (09:07)
[2021-08-18] MEDS: DOCUSATE SODIUM 100MG CAPSULE PO SCH ×2 (09:07→17:01)
[2021-08-18] MEDS: FOLIC ACID 1MG TABLET PO SCH (09:08)
[2021-08-18] MEDS: OMEPRAZOLE 20MG CAPSULE EXTENDED RELEASE PO SCH (09:08)
[2021-08-18] MEDS: AMLODIPINE 10MG TABLET PO SCH (09:08)
[2021-08-18] MEDS: INSULIN GLARGINE UD 100 UNITS/ML SYR SUBCUT SCH (10:04)
[2021-08-18] MEDS: AMOXICILLIN/POTASSIUM CLAVULANATE 875/125MG TAB PO SCH ×2 (12:40→21:08)
[2021-08-18] MEDS ORDERED: NALOXONE HCL 0.4MG/ML VIAL IV PRN (13:15)
[2021-08-18 13:46] LABS: PLATELET ESTIMATE NORMAL
[2021-08-18 20:00] VITALS: BP 118/55
[2021-08-18] MEDS: DIPHENHYDRAMINE 50MG CAPSULE PO SCH (23:19)
[2021-08-19] MEDS: BLOOD SUGAR DIAGNOSTIC STRIP TEST SCH ×4 (06:30→21:00)
[2021-08-19 06:51] LABS: HEMATOCRIT. 29.1 % (42.0-52.0); HEMOGLOBIN. 9.7 g/dL (14.0-18.0); MEAN CORPUSCULAR HEMOGLOBIN 31.6 pg (28.0-32.0); MEAN CORPUSCULAR VOLUME 94.4 fL (80.0-94.0); MEAN PLATELET VOLUME 7.7 fl (7.4-10.4); PLATELET 258 x1000/uL (130-400); RED BLOOD CELL COUNT 3.08 mill/uL (4.7-6.1); RED CELL DISTRIBUTION WIDTH 15.4 % (11.6-14.6)
[2021-08-19 07:50] VITALS: BP 119/56
[2021-08-19] MEDS: DOCUSATE SODIUM 100MG CAPSULE PO SCH ×2 (08:08→16:27)
[2021-08-19] MEDS: FOLIC ACID 1MG TABLET PO SCH (08:08)
[2021-08-19] MEDS: THIAMINE HCL 100MG TABLET PO SCH (08:08)
[2021-08-19] MEDS: ASCORBIC ACID 500 MG TABLET PO SCH (08:08)
[2021-08-19] MEDS: AMLODIPINE 10MG TABLET PO SCH (08:08)
[2021-08-19] MEDS: AMOXICILLIN/POTASSIUM CLAVULANATE 875/125MG TAB PO SCH ×2 (08:08→22:41)
[2021-08-19] MEDS: FERROUS SULFATE 325MG TABLET PO SCH ×2 (08:08→16:27)
[2021-08-19] MEDS: INSULIN LISPRO 100 UNITS/ML SUBCUT SCH ×7 (08:12→22:53)
[2021-08-19 08:40] LABS: PLATELET ESTIMATE NORMAL
[2021-08-19] MEDS: INSULIN GLARGINE UD 100 UNITS/ML SYR SUBCUT SCH (10:33)
[2021-08-19 20:00] VITALS: BP 102/55
[2021-08-19] MEDS: DIPHENHYDRAMINE 50MG CAPSULE PO SCH (22:39)
[2021-08-19] MEDS: ACETAMINOPHEN 325MG TABLET PO PRN (22:39)
[2021-08-20] MEDS: BLOOD SUGAR DIAGNOSTIC STRIP TEST SCH ×2 (05:41→11:25)
[2021-08-20 07:08] LABS: HEMATOCRIT. 30.4 % (42.0-52.0); HEMOGLOBIN. 10.2 g/dL (14.0-18.0); MEAN CORPUSCULAR HEMOGLOBIN 31.7 pg (28.0-32.0); MEAN CORPUSCULAR VOLUME 94.1 fL (80.0-94.0); MEAN PLATELET VOLUME 7.6 fl (7.4-10.4); PLATELET 240 x1000/uL (130-400); RED BLOOD CELL COUNT 3.23 mill/uL (4.7-6.1); RED CELL DISTRIBUTION WIDTH 15.3 % (11.6-14.6)
[2021-08-20 07:40] LABS: CHLORIDE 107 mEq/L (98-107)
[2021-08-20] MEDS: AMOXICILLIN/POTASSIUM CLAVULANATE 875/125MG TAB PO SCH (07:52)
[2021-08-20] MEDS: ERGOCALCIFEROL 50000UNITS CAPSULE PO SCH (07:52)
[2021-08-20 07:53] VITALS: BP 120/49
[2021-08-20] MEDS: ASCORBIC ACID 500 MG TABLET PO SCH (07:53)
[2021-08-20] MEDS: AMLODIPINE 10MG TABLET PO SCH (07:53)
[2021-08-20] MEDS: FOLIC ACID 1MG TABLET PO SCH (07:53)
[2021-08-20] MEDS: THIAMINE HCL 100MG TABLET PO SCH (07:53)
[2021-08-20] MEDS: DOCUSATE SODIUM 100MG CAPSULE PO SCH (07:53)
[2021-08-20] MEDS: FERROUS SULFATE 325MG TABLET PO SCH (07:53)
[2021-08-20] MEDS: INSULIN LISPRO 100 UNITS/ML SUBCUT SCH ×5 (07:57→12:05)
[2021-08-20 08:00] VITALS: BP 120/49
[2021-08-20] MEDS ORDERED: FOLI0.8C MT (09:50)
[2021-08-20 09:51] VITALS: BP 120/49
[2021-08-20 10:25] LABS: ATYPICAL LYMPHOCYTES 1; PLATELET ESTIMATE NORMAL
[2021-08-20] MEDS: INSULIN GLARGINE UD 100 UNITS/ML SYR SUBCUT SCH (10:29)
== END 2021-08-20 14:45 | disposition home health service (06) | DRG 559 ==
PROVIDERS: ADMIT Physical Medicine & Rehabilitation Spinal Cord Injury Medicine; ATTEND Hospitalist
PROC: 0H9FXZZ Drainage of Right Hand Skin, External Approach (ICD-10-PCS; principal; 2021-08-18)
DX: M97.01XA Periprosthetic fracture around internal prosthetic right hip joint, initial encounter (principal); S72.091A Other fracture of head and neck of right femur, initial encounter for closed fracture; E43 Unspecified severe protein-calorie malnutrition; D62 Acute posthemorrhagic anemia; F33.1 Major depressive disorder, recurrent, moderate; L03.113 Cellulitis of right upper limb; Z68.1 Body mass index [BMI] 19.9 or less, adult; L02.511 Cutaneous abscess of right hand; T84.030A Mechanical loosening of internal right hip prosthetic joint, initial encounter; B35.1 Tinea unguium; D69.6 Thrombocytopenia, unspecified; D72.819 Decreased white blood cell count, unspecified; E55.9 Vitamin D deficiency, unspecified; G47.00 Insomnia, unspecified; I10 Essential (primary) hypertension; J44.9 Chronic obstructive pulmonary disease, unspecified; Z96.642 Presence of left artificial hip joint; W01.0XXA Fall on same level from slipping, tripping and stumbling without subsequent striking against object, initial encounter; Y93.01 Activity, walking, marching and hiking; R26.9 Unspecified abnormalities of gait and mobility; K22.70 Barrett's esophagus without dysplasia; M16.11 Unilateral primary osteoarthritis, right hip; Y83.8 Other surgical procedures as the cause of abnormal reaction of the patient, or of later complication, without mention of misadventure at the time of the procedure; Z79.4 Long term (current) use of insulin; Z80.3 Family history of malignant neoplasm of breast; Z82.49 Family history of ischemic heart disease and other diseases of the circulatory system; Z85.01 Personal history of malignant neoplasm of esophagus; Z87.81 Personal history of (healed) traumatic fracture; Z87.891 Personal history of nicotine dependence; Y99.8 Other external cause status; Y92.830 Public park as the place of occurrence of the external cause; Y92.89 Other specified places as the place of occurrence of the external cause; E11.9 Type 2 diabetes mellitus without complications; M79.609 Pain in unspecified limb
CPT/HCPCS: 36415; 73502; 80048; 80053; 82270; 82306; 82607; 82728; 82746; 82962; 83036; 83540; 83550; 84134; 84443; 85025; 85044; 93970; 97110; 97116; 97150; 97163; 97166; 97530; 97535; J1815; J3420; J7040; J7050; Q0163